=== PATIENT | male | born 1965 | race Two or more races ===

== ENCOUNTER 2023-05-12 07:25 | Emergency (ER) | payer OTHER ==
--- NOTE | 2023-05-12 08:00 | ED Physician Documentation ---
PD HPI URI - Stated complaint Stated Complaint: COUGH,LOWER BACK PX,CHEST SORENESS - Chief complaint Chief Complaint: Cardiac - History obtained from History obtained from: Patient - History of Present Illness Timing - onset: How many days ago (3) Timing duration: Days Timing details: Gradual onset, Still present Associated symptoms: Chills, Dry cough, Chest pain (tightness), Dyspnea, Other (low back pain without injury, hurts with movement and bending. and has had some discomfort/upset stomach with eating. The combined symptoms of chest discomfort, dyspnea, nausea/upset stomach into back caused nursing advise line to urge him to come to ER to evaluate for heart related.). No: Fever Contributing factors: No: Travel, COPD / asthma Similar symptoms before: Has not had sx before Recently seen: Not recently seen Review of Systems Constitutional: reports: Myalgias, Fatigue (for few days). denies: Fever, Chills Nose: reports: Congestion. denies: Rhinorrhea / runny nose Throat: denies: Sore throat Cardiac: reports: Chest pain / pressure (tightness and feeling of poor inspiration.). denies: Palpitations, Pedal edema, Calf pain Respiratory: reports: Dyspnea, Cough. denies: Wheezing GI: reports: Abdominal Pain (some epigastric discomfort with eating the past few days, some nausea.), Nausea. denies: Vomiting, Constipation, Diarrhea, Bloody / black stool Musculoskeletal: reports: Extremity pain (has had some heel/achilles pain with walking for couple of weeks, after having turned ankle injury the week prior. No calf pain nor swelling.) PD PAST MEDICAL HISTORY - Past Medical History Past Medical History: No Cardiovascular: None Respiratory: None Endocrine/Autoimmune: None - Past Surgical History Past Surgical History: Yes Ortho: Other - Present Medications Home Medications: Ambulatory Orders Medication Instructions Recorded Confirmed Benzonatate [Tessalon] 100 mg PO TID PRN #20 cap 05/12/23 Pantoprazole [Protonix] 40 mg PO DAILY 30 Days #30 tablet 05/12/23 Sucralfate [Carafate] 1 gm PO ACHS 5 Days #20 tablet 05/12/23 dexAMETHasone [Decadron] 4 mg PO DAILY #5 tablet 05/12/23 - Allergies Allergies/Adverse Reactions: Allergies Allergy/AdvReac Type Severity Reaction Status Date / Time No Known Drug Allergies Allergy Verified 05/12/23 07:35 - Social History Does the pt smoke?: No Smoking Status: Never smoker Does the pt drink ETOH?: Yes Does the pt have substance abuse?: No - Immunizations Immunizations are current?: Yes - POLST Patient has POLST: No PD ED PE NORMAL - Vitals Vital signs reviewed: Yes - General General: Alert and oriented X 3, No acute distress, Well developed/nourished - HEENT HEENT: Pharynx benign - Neck Neck: Supple, no meningeal sign, No adenopathy - Cardiac Cardiac: RRR, No murmur - Respiratory Respiratory: No respiratory distress, Clear bilaterally - Abdomen Abdomen: Normal bowel sounds, Soft, Non distended, Other (some mild tender epigastric area. ) - Derm Derm: Normal color, Warm and dry - Extremities Extremities: No edema, No calf tenderness / cord, Other (oot and ankle not examinied. ) - Neuro Neuro: Alert and oriented X 3, No motor deficit, Normal speech Results - Vitals Vitals: Oxygen O2 Source Room air - EKG (time done) 07:46 EKG releavant findings:: EKG personally interpreted by author of this note. Relevant findings are: Rate: Rate (enter#) (87) Rhythm: NSR Nash: Normal Intervals: Normal AK QRS: Poor R wave progression Ischemia: Normal ST segments. No: ST elevation c/w ischemia, ST depression Compare to prior EKG: Old EKG unavailable - Labs Labs: Laboratory Tests 05/12/23 05/12/23 07:55 07:55 WBC 7.1 RBC 5.04 Hgb 15.1 Hct 43.2 MCV 85.7 MCH 30.0 MCHC 35.0 RDW 12.3 Plt Count 298 MPV 9.9 Neut # (Auto) 5.1 Lymph # (Auto) 1.[address] [place] # (Auto) 0.6 Eos # (Auto) 0.1 Baso # (Auto) 0.0 Absolute Nucleated RBC 0.00 Nucleated RBC % 0.0 Sodium 137 Potassium 3.8 Chloride 102 Carbon Dioxide 27 Anion Gap 8.0 BUN 10 Creatinine 1.0 Estimated GFR (MDRD) 77 L Glucose 110 H Calcium 9.9 Total Bilirubin 0.8 AST 12 ALT 10 Alkaline Phosphatase 55 Troponin I High Sens 3.9 Total Protein 7.2 Albumin 4.3 Globulin 2.9 Albumin/Globulin Ratio 1.5 Lipase 32 - Rads (name of study) chest xray Relevant Findings:: Prelim report reviewed, EMP independent interpretation of test (no infiltrates. Normal heart size and mediastinum. ) PD Medical Decision Making - ED course Complexity details: reviewed results, considered differential (sounds like flu like illness with cough, chest tightness, some nausea and fatigue. ECG, CXR and troponin are normal. No signs of heart related process. Low back pain seems muscular and likely part of myalgias of viral syndrome. We discussed the foot tendonitis sound of it. ), d/w patient Departure - Departure Disposition: Home, Self Care Clinical Impression: Plantar tendonitis, Low back strain, Gastritis, Viral URI with cough Condition: Stable Record reviewed to determine appropriate education?: Yes Instructions: ED Upper Resp Infec No Abx Tx, ED Gastritis Follow-Up: [facility] [Provider Group] Prescriptions: Sucralfate [Carafate] 1 gm PO ACHS 5 Days #20 tablet dexAMETHasone [Decadron] 4 mg PO DAILY #5 tablet Pantoprazole [Protonix] 40 mg PO DAILY 30 Days #30 tablet Benzonatate [Tessalon] 100 mg PO TID PRN #20 cap PRN Reason: Cough Comments: Your chest x-ray is clear without any signs of pneumonia, enlarged heart, fluid buildup or collapsed lung. Your EKG shows normal variant of the delayed R wave progression. This commonly is a normal variant and by your description of exercise ability, does not sound like you have underlying angina or heart disease. Your blood test called troponin which is a marker for heart muscle injury, is well normal as is the rest of your chemistry panel and blood count. So no heart attack, myocarditis or other cardiac muscle problem. No signs of pancreatic or liver inflammation. Kidney function is good. Electrolytes and blood count are normal. At this point would presume you are cough is of viral type illness. No santhosh cation of a bacterial cause at this time. We can try some medication to help with bronchial irritation and decreasing cough. The coughing itself along with just the viral illness can often precipitate back and neck pains. I presume you are back pain is related to the collar and illness and coughing. Heat and gentle stretching. I would avoid NSAIDs as this could further irritate your stomach as well. Use Tylenol 500 to 650 mg 4 times daily to help with pains. Regarding your esophageal and stomach irritation with eating, this sometimes can be exacerbated by frequent NSAID use. Avoid that for now. You said you had some relief with the famotidine/Pepcid. We can try something a little "stronger" to help with the stomach acids and would suggest pantoprazole daily for a month. In addition short-term you can use some medication to coat the stomach several times daily but in particular before bedtime and in the morning but you can scatter the doses for the day as directed. Regarding your heel pain, you may have some inflammation of the tendons on the foot and heel subsequent to your prior sprain. This would be relatively common. It did not look at it directly but by your description I would suggest using some store-bought heel cups to lift the heel slightly and take some of the tension off the tightness of the tendons and that often is enough to help it heal over several days to week. I sent your prescriptions to [facility] pharmacy. Follow-up with your primary care if not improving well over the next several days to week in all regards. Forms: PCP List Discharge Date/Time: 05/12/23 09:36
[2023-05-12 08:07] LABS: BASOPHILS % (AUTO) 0.1 %; EOSINOPHILS # (AUTO) 0.1 10^3/uL (0.0-0.7); EOSINOPHILS % (AUTO) 0.8 %; HCT - HEMATOCRIT 43.2 % (42.0-52.0); HGB - HEMOGLOBIN 15.1 g/dL (14.0-18.0); LYMPHOCYTES # (AUTO) 1.3 10^3/uL (1.5-3.5); LYMPHOCYTES % (AUTO) 18.9 %; MEAN CORPUSCULAR VOLUME 85.7 fL (80.0-94.0); MEAN PLATELET VOLUME 9.9 fL (7.4-11.4); MONOCYTES # (AUTO) 0.6 10^3/uL (0.0-1.0); MONOCYTES % (AUTO) 8.3 %; NEUTROPHILS # (AUTO) 5.1 10^3/uL (1.5-6.6); NEUTROPHILS % (AUTO) 71.6 %; PLT - PLATELET COUNT 298 10^3/uL (130-450); RED BLOOD COUNT 5.04 10^6/uL (4.70-6.10); RED CELL DISTRIBUTION WIDTH 12.3 % (12.0-15.0); WHITE BLOOD COUNT 7.1 x10^3/uL (4.8-10.8)
[2023-05-12 08:26] LABS: ALBUMIN 4.3 g/dL (3.2-5.5); ALBUMIN/GLOBULIN RATIO 1.5 (1.0-2.2); BILIRUBIN,TOTAL 0.8 mg/dL (0.2-1.0); CALCIUM 9.9 mg/dL (8.5-10.3); POTASSIUM 3.8 mmol/L (3.5-4.5); TOTAL PROTEIN 7.2 g/dL (6.4-8.9); TROPONIN I HIGH SENSITIVITY 3.9 ng/L (2.3-19.7)
[2023-05-12] MEDS: PANTOPRAZOLE 40 MG TABLET PO STA (08:50)
[2023-05-12] MEDS: dexAMETHasone 4 MG TABLET PO STA (08:51)
[2023-05-12] MEDS: MAG HYDROX/AL HYDROX/SIMETH 30 ML UDC PO STA (08:51)
[2023-05-12] MEDS: BENZONATATE 100 MG CAPSULE PO STA (08:51)
--- NOTE | 2023-05-12 08:56 | XRAY Report ---
PROCEDURE: Chest 1V INDICATIONS: Chest pain TECHNIQUE: One view of the chest was acquired. COMPARISON: None. FINDINGS: Surgical changes and devices: None. Lungs and pleura: No dense consolidation or pleural effusion. Mediastinum: Heart size is at the upper limit of normal. Bones and chest wall: Degenerative changes. IMPRESSION: On this limited single view portable radiograph, no acute abnormality is seen. Reviewed by: Yonis Stringer MD on 05/12/2023 8:55 AM PDT Approved by: Yonis Stringer MD on 05/12/2023 8:55 AM PDT Station ID: [id number]
[2023-05-12 09:45] VITALS: BP 122/82; O2SAT 100
== END 2023-05-12 09:36 | disposition home or self-care (01) ==
LOC: ED 07:25
DX: S39.012A Strain of muscle, fascia and tendon of lower back, initial encounter (principal); X58.XXXA Exposure to other specified factors, initial encounter; M77.8 Other enthesopathies, not elsewhere classified; J06.9 Acute upper respiratory infection, unspecified; B97.89 Other viral agents as the cause of diseases classified elsewhere
CPT/HCPCS: 36415; 71045; 80053; 83690; 84484; 85025; 93005; 99284; A9270; J8540